=== PATIENT | male | born 1960 | race African-American/Black ===

== ENCOUNTER 2021-09-17 05:32 | Emergency (ER) | payer OTHER ==
[~2021-09-17] VITALS: Ht 170.2 cm; Wt 102.0 kg
[2021-09-17] MEDS ORDERED: PENICILLIN V POTASSIUM 500 MG TABLET PO ONE (06:45)
[2021-09-17] MEDS ORDERED: PENI500T2 PO (06:48)
[2021-09-17] MEDS ORDERED: IBUP-2070 PO (06:48)
[2021-09-17 06:59] VITALS: BP 157/89
== END 2021-09-17 07:01 | disposition home or self-care (01) ==
LOC: EMS 05:34
DX: K02.9 Dental caries, unspecified (principal); K08.89 Other specified disorders of teeth and supporting structures
CPT/HCPCS: 99283